=== PATIENT | female | born 1975 | race Caucasian/White ===

== ENCOUNTER 2018-12-08 12:45 | Day surgery (SDC) | payer OTHER ==
[2018-12-08] MEDS ORDERED: FENTAnyl 50 MCG/ML VIAL (17:09)
[2018-12-08] MEDS ORDERED: MIDAZOLAM 1 MG/ML 2 ML INJ ×2 (17:09)
== END 2018-12-08 17:50 | disposition home or self-care (01) ==
LOC: GIL 12:45
DX: Z12.11 Encounter for screening for malignant neoplasm of colon (principal); K29.30 Chronic superficial gastritis without bleeding; K21.0 Gastro-esophageal reflux disease with esophagitis; K64.8 Other hemorrhoids
CPT/HCPCS: 43239; 88305; 88312; 88313